=== PATIENT | female | born 1950 | race Caucasian/White ===

== ENCOUNTER 2016-04-13 09:37 | Outpatient (RCR) | payer MEDICARE, OTHER | END 2016-07-12 | disposition home or self-care (01) | LOC: LAB 09:37 | PROVIDERS: ATTEND Internal Medicine Hematology & Oncology | DX: C25.0 Malignant neoplasm of head of pancreas (principal) | CPT/HCPCS: 36415; 85610 ==

== ENCOUNTER 2016-07-19 14:56 | Outpatient (RCR) | payer MEDICARE, OTHER ==
[2016-07-31 08:58] LABS: BASOPHILS % (AUTO) 1 % (0-2); EOSINOPHILS # (AUTO) 0.1 10^3uL; EOSINOPHILS % (AUTO) 2 % (0-4); LYMPHOCYTES # (AUTO) 1.2 X10^3; MEAN CORPUSCULAR HEMOGLOBIN 28.5 PG (26.0-34.0); MEAN CORPUSCULAR HGB CONC 32.5 g/dL (31.0-37.0); MEAN CORPUSCULAR VOLUME 88 FL (80-100); MEAN PLATELET VOLUME 11.4 FL (6.0-9.5); MONOCYTES # (AUTO) 0.3 X10^3; MONOCYTES % (AUTO) 6 % (3-11); NEUTROPHILS # (AUTO) 3.4 X10^3; NEUTROPHILS % (AUTO) 67 % (51-67); PLATELET COUNT 258 10^3uL (150-450); WHITE BLOOD COUNT 5.14 10^3uL (4.0-11.0)
[2016-07-31 09:32] LABS: TOTAL PROTEIN 7.2 g/dL (6.4-8.5)
== END 2016-09-20 19:23 | disposition home or self-care (01) ==
LOC: LAB 14:56 → EDSTATUS 15:05 → LAB 09-20 19:23
PROVIDERS: ATTEND Internal Medicine Hematology & Oncology
DX: Z51.81 Encounter for therapeutic drug level monitoring (principal); Z79.01 Long term (current) use of anticoagulants; C25.0 Malignant neoplasm of head of pancreas
CPT/HCPCS: 36415; 80053; 85025; 85610; 86301

== ENCOUNTER → 2016-08-03 | Outpatient (CLI) | payer MEDICARE, OTHER ==
--- NOTE | 2016-08-03 13:48 | Diagnostic Imaging Report ---
PROCEDURE: CT chest pelvis with and abdomen with and without contrast. TECHNIQUE: Multiple contiguous axial images were obtained through the chest, abdomen and pelvis after uneventful bolus administration of intravenous contrast. Precontrast acquisitions were acquired through the abdomen. INDICATION: Pancreatic carcinoma. COMPARISON: 02/14/2016. Thorax: The great vessels are negative. Axilla are negative. The Port-A-Cath tip is in the right atrium/ SVC junction region. There are no pathologically enlarged lymph nodes demonstrated. No pleural effusion is seen. Lungs are negative for mass or other significant abnormality. An area of discoid scarring is present in the left base. IMPRESSION: No significant thoracic abnormality. Abdomen and pelvis: Pneumobilia is present compatible with Whipple. There is no hepatic mass identified. Mild hepatic steatosis is present. A pancreatic ductal stent is present. There is no evidence for pancreatic ductal dilatation. I see no recurrent mass at the pancreaticojejunal or hepaticojejunal anastomosis. No enlarged lymph nodes are seen in the gastrosplenic ligament region. The periportal lymph nodes are negative. No abnormal lymph nodes are seen at the celiac axis or SMA origins. Pelvic inguinal mesenteric lymph nodes are negative. No kidney lesion is identified. Ventral hernia is present containing portions of the transverse colon. This is similar to comparison exam. There is no evidence for bowel obstruction. Small mass at the anterior body of the uterus is unchanged from comparison exam consistent with a leiomyoma. No osteolytic or osteoblastic lesion is identified. IMPRESSION: 1. Postoperative Whipple. Mild hepatic steatosis. Negative for recurrence or new lesion. 2. Ventral hernia similar to prior study. Dictated by: Dictated on workstation # [id number]
== END ==
LOC: RAD 09:06
PROVIDERS: ATTEND Internal Medicine Hematology & Oncology
DX: C25.0 Malignant neoplasm of head of pancreas (principal)
CPT/HCPCS: 71260; 74178; Q9967